=== PATIENT | male | born 1985 ===

== ENCOUNTER 2025-03-03 06:02 | Day surgery (SDC) | payer OTHER ==
[2025-02-24 12:02] LABS: URINE APPEARANCE Clear; URINE BILIRRUBIN Negative (NEGATIVE); URINE BLOOD Negative; URINE COLOR Yellow; URINE GLUCOSE Negative (NEGATIVE); URINE KETONE Negative (NEGATIVE); URINE LEUKOCYTE Negative; URINE NITRATE Negative; URINE PROTEIN Negative (NEGATIVE); URINE UROBILINOGEN 0.2 E.U./dl
[2025-02-24 12:08] LABS: BASO % 0.9 % (0.1-1.2); EOS # 0.64 (0.04-0.54); EOS % 6.4 % (0.7-7.0); LYMPH # 2.42 (1.18-3.74); LYMPH % 24.3 % (19.3-53.1); MEAN PLATELET VOLUME 11.10 fl (9.4-12.4); MONO # 0.53 (0.24-0.82); MONO % 5.3 % (4.7-12.5); NEUT # 6.23 (1.56-6.13); NEUT % 62.6 % (34.0-71.1); RED CELL DISTRIBUTION WIDTH 14.2 % (11.6-14.4)
[2025-02-24 12:18] LABS: INR 1.04
[2025-02-24 12:42] LABS: URINE BACTERIA 2.3 uL (0.0-1933); URINE CAST 0.00 uL (0.0-1.40); URINE EPITHELIAL CELLS 0.3 uL (0.0-38.8); URINE RBC 0.2 uL (0.0-20.8); URINE WBC 0.4 uL (0.0-23.2)
[2025-02-24 13:14] LABS: ALT/SGPT 53.0 U/L (12-78); AST/SGOT 30.0 U/L (15-37); BILIRUBIN TOTAL 0.4 mg/dL (0.3-1.2); BUN CREA RATIO 20.0 (7.0-25.0); CREATININE SERUM 0.8 mg/dL (0.70-1.30); GFR 108.19; GLOBULINA 4.1 G/DL (2.4-3.5); GLUCOSE FASTING 93.0 mg/dL (65-100); OSMOLALITY SERUM 277.0 MOSM/KG (275-295)
[2025-03-03] MEDS ORDERED: TYLENOL ARTHRI650 MG PO (08:39)
[2025-03-03] MEDS ORDERED: KETO10TA2 PO (08:39)
[2025-03-03] MEDS ORDERED: TRAMADOL HCL50 MG PO (08:39)
[2025-03-03] MEDS ORDERED: MIRALAX17 GM PO (08:39)
[2025-03-03] MEDS ORDERED: CEFAZOLIN SODIUM 1,000 MG VIAL IV ONE (09:15)
[2025-03-03] MEDS ORDERED: BUPIVACAINE HCL 30 ML VIAL IJ ONE (09:15)
[2025-03-03] MEDS ORDERED: SUGAMMADEX SODIUM 200 MG/2 ML VIAL IV ONE (10:30)
[2025-03-03] MEDS ORDERED: MORPHINE SULFATE 4 MG/ML VIAL IV ONE (11:55)
== END 2025-03-03 13:00 | disposition home or self-care (01) ==
LOC: CIR.AMB 06:02
PROVIDERS: ATTEND Surgery
DX: K40.90 Unilateral inguinal hernia, without obstruction or gangrene, not specified as recurrent (principal); K42.0 Umbilical hernia with obstruction, without gangrene
CPT/HCPCS: 49650; 49592; C1781